=== PATIENT | male | born 1945 | race Caucasian/White ===

== ENCOUNTER → 2016-05-14 | Outpatient (CLI) | payer OTHER | LOC: MMPC 09:00 | DX: N17.9 Acute kidney failure, unspecified (principal); G47.33 Obstructive sleep apnea (adult) (pediatric); A04.7 Enterocolitis due to Clostridium difficile; I48.2 Chronic atrial fibrillation; C92.10 Chronic myeloid leukemia, BCR/ABL-positive, not having achieved remission; K20.9 Esophagitis, unspecified; G62.9 Polyneuropathy, unspecified | CPT/HCPCS: 99204; G0463 ==